=== PATIENT | male | born 1935 | race Caucasian/White ===

== ENCOUNTER → 2016-12-21 | Outpatient (CLI) | payer BC, MEDICARE | END | disposition home or self-care (01) | LOC: CVU 13:06 | PROVIDERS: ATTEND Internal Medicine Cardiovascular Disease | DX: I08.3 Combined rheumatic disorders of mitral, aortic and tricuspid valves (principal); I37.1 Nonrheumatic pulmonary valve insufficiency; Z85.46 Personal history of malignant neoplasm of prostate; Z98.890 Other specified postprocedural states | CPT/HCPCS: 93306 ==

== ENCOUNTER 2019-06-05 08:23 | Day surgery (SDC) | payer MEDICARE ==
[~2019-06-05] VITALS: Ht 180.3 cm; Wt 77.7 kg
[~2019-06-05 08:23] MED LIST: APIX5TAB PO; DIGO125T PO; DILT30TA33 PO; LEVO50TA5 PO; METO25TA35 PO
[2019-06-05 11:29] VITALS: BP 144/73
[2019-06-05 11:59] LABS: BASOPHILS # (AUTO) 0.04 x10^3/uL (0-0.1); BASOPHILS % (AUTO) 1 % (0-1); EOSINOPHILS # (AUTO) 0.21 x10^3/uL (0-0.4); EOSINOPHILS % (AUTO) 3 % (1-7); LYMPHOCYTES # (AUTO) 1.02 x10^3/uL (1-3.4); LYMPHOCYTES % (AUTO) 17 % (22-44); MD NO; MEAN CORPUSCULAR HEMOGLOBIN 30.8 pg (27.5-34.5); MEAN CORPUSCULAR HGB CONC 33.1 g/dL (33.2-36.2); MEAN CORPUSCULAR VOLUME 93.1 fL (81-97); MEAN PLATELET VOLUME 8.9 fL (7.4-10.4); MONOCYTES # (AUTO) 0.49 x10^3/uL (0.2-0.8); MONOCYTES % (AUTO) 8 % (2-9); NEUTROPHILS # (AUTO) 4.32 x10^3/uL (1.8-6.8); NEUTROPHILS % (AUTO) 71 % (42-75); PLATELET COUNT 186 x10^3/uL (130-400); RED BLOOD COUNT 4.52 x10^6/uL (4.38-5.82); RED CELL DISTRIBUTION WIDTH 14.3 % (9.4-14.8)
[2019-06-05] MEDS ORDERED: MIDAZOLAM 1 MG/ML, 5ML ONE (12:06)
[2019-06-05] MEDS ORDERED: FENTANYL PF 100 MCG/2ML ONE (12:06)
[2019-06-05 12:07] LABS: ANION GAP 4 mmol/L (5-15); CALCIUM 8.6 mg/dL (8.5-10.1); CHLORIDE 109 mmol/L (98-107)
[2019-06-05] MEDS ORDERED: BIVALIRUDIN 250 MG ONE (12:07)
[2019-06-05] MEDS ORDERED: VERAPAMIL 2.5 MG/ML, 2ML ONE (12:07)
[2019-06-05] MEDS ORDERED: LIDOCAINE-MPF 1%, 5ML ONE (12:07)
[2019-06-05] MEDS ORDERED: HEPARIN 1,000 UNITS/ML, 10ML ONE (12:07)
[2019-06-05 12:09] LABS: CREATININE 0.97 mg/dL (0.7-1.3)
== END 2019-06-05 16:25 | disposition home or self-care (01) ==
LOC: CACL 08:23
PROVIDERS: ATTEND Internal Medicine Cardiovascular Disease
DX: R94.39 Abnormal result of other cardiovascular function study (principal); I25.119 Atherosclerotic heart disease of native coronary artery with unspecified angina pectoris; I25.83 Coronary atherosclerosis due to lipid rich plaque; I48.0 Paroxysmal atrial fibrillation; E03.9 Hypothyroidism, unspecified; E78.5 Hyperlipidemia, unspecified; Z79.01 Long term (current) use of anticoagulants; Z79.890 Hormone replacement therapy; Z79.899 Other long term (current) drug therapy; Z88.2 Allergy status to sulfonamides
CPT/HCPCS: 36415; 80048; 85025; 93458; 99156; C1769; C1894; J0583; J1644; J2250; J3010; Q9967